=== PATIENT | female | born 1980 | race Caucasian/White ===

== ENCOUNTER 2017-05-04 15:54 | Emergency (ER) | payer OTHER ==
--- NOTE | ~2017-05-04 | ER ---
PATIENT'S NAME: HERNAN COLUNGA [facility] AGE: 36 Y [address] ROOM: [place] [address] LOCATION: [facility] ADMIT DATE: 05/04/2017 ER/Outpatient Report DISCHARGE DATE: 05/04/2017 FAMILY PHYSICIAN: PHYSICIAN, NO ATTENDING PHYSICIAN: Chris Caldwell CHIEF COMPLAINT: Left arm pain. HISTORY OF PRESENT ILLNESS: Ms. Colunga was using a deep freezer with a large lid which inadvertently closed on her left forearm on Thursday. Since then, she has had pain and some swelling, but it has been slowly getting worse over the last few days and it is particularly bothersome after her work today. She states she was able to work today, but it was bothersome. She has tried some ice and some over-the- counter anti-inflammatories, but is just concerned that it is continuing to slowly worsened. She states that there is some numbness in her left 2 fingers, but that is it. She denies any focal weakness. PAST MEDICAL HISTORY: Documented on the record and reviewed by me. SOCIAL HISTORY: Documented on the record and reviewed by me. MEDICATIONS: Documented on the record and reviewed by me. ALLERGIES: DOCUMENTED ON THE RECORD AND REVIEWED BY ME. REVIEW OF SYSTEMS: All systems reviewed and negative except as noted in the HPI. PHYSICAL EXAMINATION: VITAL SIGNS: Blood pressure 139/96, pulse 95, respiratory rate 18, temperature 97.8, SpO2 is 99% on room air. Pain 0/10. GENERAL: Age-appropriate female. No obvious pain or distress, sitting upright on exam table. NEUROLOGIC: Awake and alert. GCS 15. No focal deficits. No asymmetry. HEENT: Normocephalic, atraumatic. Eyes are PERRL. Oropharynx clear. NECK: Supple. Trachea is midline CHEST/HEART: Regular rate and rhythm. LUNGS: Clear to auscultation. ABDOMEN: Benign. BACK: Normal to inspection and palpation. PATIENT'S NAME: HERNAN COLUNGA [facility] AGE: 36 Y [address] ROOM: [place], [place] [address] LOCATION: [facility] ADMIT DATE: 05/04/2017 ER/Outpatient Report DISCHARGE DATE: 05/04/2017 FAMILY PHYSICIAN: PHYSICIAN, NO ATTENDING PHYSICIAN: Chris Caldwell EXTREMITIES: Warm and well perfused with no deformities. The left forearm has an area of ecchymosis on the distal third laterally along the ulna. There is no obvious sensory deficits appreciated throughout the hand. Sensation is intact to light touch, but perhaps slightly diminished over the ulnar distribution. Lathe Sander strength is intact throughout and symmetric. The patient has no nerve palsies otherwise. SKIN: Clean, dry and intact. LABORATORY DATA AND X-RAYS: Plain films of the left forearm were obtained with no obvious fractures per my read. IMPRESSION: Left forearm contusion with transient nerve involvement. EMERGENCY DEPARTMENT COURSE: The patient was seen and evaluated. Presentation is not consistent with compartment syndrome. She will need ice, anti-inflammatories and time. Activity as tolerated. Return if worsening of pain. All questions answered. The patient discharged. MD GERMAN MACARIO/eve /[id number] d: 05/05/17 0035 t: 05/25/17 1653, OUTPATIENT REPORT
== END 2017-05-04 16:40 | disposition disaster alternative care site (69) ==
LOC: GACC 15:54
DX: S54.02XA Injury of ulnar nerve at forearm level, left arm, initial encounter (principal); W22.8XXA Striking against or struck by other objects, initial encounter

== ENCOUNTER 2017-06-07 21:51 | Emergency (ER) | payer OTHER ==
--- NOTE | ~2017-06-07 | ER ---
PATIENT'S NAME: HERNAN COLUNGA [facility] AGE: 36 Y [address] ROOM: [place] [address] LOCATION: [facility] ADMIT DATE: 06/07/2017 ER/Outpatient Report DISCHARGE DATE: FAMILY PHYSICIAN: PHYSICIAN, NO ATTENDING PHYSICIAN: Jax Damico Admission date and time documented in the medical record. I saw the patient at 2210 hours. CHIEF COMPLAINT: Headache. HISTORY OF PRESENT ILLNESS: The patient is a 36-year-old female who comes in with left-sided headache. Headache started around 1800 hours this evening. The patient was sitting and quilting when this started. Gradually worsened, presented to the emergency room for evaluation. She had nausea and vomited twice. No other complaints. The patient has had headaches since she was in early teens. Last headache was about 6 months prior. No recent colds, coughs, flus, fever, chills, or sweats. No fall or trauma. No eyes, ears, nose, throat, neck, or spine pain. No lightheadedness, dizziness, syncope, or near syncope. She has a little bit of blurred vision. No fever, but some chills. No chest pain or shortness of breath. No abdominal pain. No urinary frequency, urgency, or dysuria. No joint or muscle swelling, redness, or pain. No skin eruptions or rash. Does have a history of headaches. Otherwise, no history of TIA, CVA, depression, anxiety, psychosis, or endocrine problems. HOME MEDICATIONS: Nexium. ALLERGIES: NONE. SOCIAL HISTORY: The patient smokes a pack of cigarettes per day. Occasional intake of alcohol. SIGNIFICANT PAST MEDICAL HISTORY: Headaches and tobacco abuse, otherwise negative. OPERATIONS: Tonsillectomy, right shoulder surgery, D and C, and cholecystectomy. REVIEW OF SYSTEMS: All systems reviewed by me are negative with the exception of those discussed PATIENT'S NAME: HERNAN COLUNGA [facility] AGE: 36 Y [address] ROOM: [place] [address] LOCATION: [facility] ADMIT DATE: 06/07/2017 ER/Outpatient Report DISCHARGE DATE: FAMILY PHYSICIAN: PHYSICIAN, NO ATTENDING PHYSICIAN: Jax Damico in the history of present illness. PHYSICAL EXAMINATION: VITAL SIGNS: Temperature 98.7 tympanic, pulse 77, respirations 18, blood pressure 132/72, and O2 saturation on room air is 99%. HEAD: Normocephalic. No abrasion, contusion, laceration, or swelling of the scalp or face. EYES: Extraocular muscles intact. PERRL. EARS: Clear TMs bilaterally. NOSE: Clear. THROAT: Clear. Mucous membranes moist. Teeth, jaw intact. NECK: No nuchal rigidity. No findings of adenopathy. Full range of motion. No tenderness. SPINE: Nontender. No deformity. LUNGS: Clear. No rales, rhonchi, or wheezes. HEART: Regular. Pulses are palpable. No chest wall or ribcage pain to palpation. No deformity. ABDOMEN: Soft. Nontender. Good bowel tones. No organomegaly or abnormal mass palpable. No CVA tenderness. EXTREMITIES: Moves all 4 extremities. No peripheral edema, cyanosis, or deformity. NEUROVASCULAR: Intact. SKIN: Clear. No skin eruptions or rash. IMPRESSION: Headache. PLAN: The patient was given IV normal saline 1 L in the emergency room. She was given Benadryl 50 mg IV in the emergency room followed 10 minutes later by Compazine 10 mg IV and Nubain 5 mg IV in the emergency room. The patient did well. Discharged home. Observation. Activity as tolerated. Continue home medications and care. Rest, fluids, and diet as tolerated. Follow up with personal physician as needed. MD NGUYEN NUÑEZ/modl /[id number] d: 06/07/17 2359 t: 06/11/17 1812, OUTPATIENT REPORT
== END 2017-06-07 23:37 | disposition disaster alternative care site (69) ==
LOC: GMED 21:51
DX: R51 Headache (principal); F17.210 Nicotine dependence, cigarettes, uncomplicated; Z90.89 Acquired absence of other organs; Z90.49 Acquired absence of other specified parts of digestive tract; Z98.890 Other specified postprocedural states; Z79.899 Other long term (current) drug therapy
CPT/HCPCS: J0780; J1200; J2300; J7030